=== PATIENT | female | born 1950 | race Caucasian/White ===

== ENCOUNTER 2024-01-13 10:05 | Inpatient (IN) ==
[2024-01-13] MEDS ORDERED: IOPAMIDOL 100 ML BOTTLE IV ONE (10:06)
[2024-01-13] MEDS: 0.9 % SODIUM CHLORIDE 1,000 ML IV ONE (10:30)
[2024-01-13] MEDS: cefTRIAXone 2 GM in DEXTROSE 5% IN WATER 50 ML IV ONE (10:55)
[2024-01-13 11:28] LABS: Basophils # (Auto) 0.03 K/mcL (0.00-0.30); Basophils % (Auto) 0.4 % (0.0-2.0); Eosinophils # (Auto) 0.01 K/mcL (0.00-0.70); Eosinophils % (Auto) 0.1 % (0.0-7.0); Hematocrit 47.2 % (34.1-44.9); Hemoglobin 15.3 g/dL (11.2-15.7); Lymphocytes # (Auto) 0.94 K/mcL (1.50-4.80); Lymphocytes % (Auto) 11.1 % (15.5-49.0); Mean Cell Volume 96.7 fL (80.0-100.0); Mean Corpuscular HGB Conc 32.4 g/dL (31.0-36.0); Mean Platelet Volume 10.8 fL (8.8-12.5); Monocytes # (Auto) 0.87 K/mcL (0.10-0.90); Monocytes % (Auto) 10.3 % (1.0-12.0); Neutrophils % (Auto) 77.9 % (38.0-78.0); Platelet Count 136 K/mcL (140-440); RBC 4.88 M/mcL (3.59-5.38); Red Cell Distribution Width 13.7 % (11.5-14.5); WBC 8.5 K/mcL (4.5-11.0)
[2024-01-13 11:57] LABS: Appearance,Urine Clear (Clear); Bacteria,Urine Mod /hpf (0); Bilirubin,Urine Small mg/dL (Negative); Color,Urine Yellow; Culture Indicated,Urine Yes; Glucose,Urine (UA) Negative (Negative); Ketones,Urine >=160 mg/dL (Negative); Leukocyte Esterase,Urine Moderate /uL (Negative); Nitrate,Urine Negative (Negative); Protein,Urine 100 mg/dL (Negative); Specific Gravity,Urine 1.025 (1.000-1.035); Urine Blood Large ery/mcL (Negative); Urine RBC > 182 /hpf (0-1); Urine Renal Epithelial Cells 3 /hpf (0-2); Urine Squamous Epithelial Cell 2 /hpf (0-4); Urine WBC > 182 /hpf (0-4)
[2024-01-13 12:04] LABS: ALT/SGPT 76 U/L (<40); AST/SGOT 91 U/L (<32); Albumin 3.9 gm/dL (3.2-5.2); Albumin/Globulin Ratio 1.6 (1.0-2.3); Alkaline Phosphatase 99 U/L (39-117); Bilirubin,Total 1.8 mg/dL (0.1-1.0); Blood Urea Nitrogen 17 mg/dL (8-23); Calcium 8.4 mg/dL (8.6-10.4); Carbon Dioxide 20 mmol/L (22-30); Chloride 102 mmol/L (96-108); Globulin 2.4 gm/dL (2.2-3.7); Glomerular Filtration Rate 73; Glucose 108 mg/dL (70-105); Potassium 4.2 mmol/L (3.3-5.1); Sodium 138 mmol/L (133-145); Thyroid Stimulating Hormone 2.69 uIU/mL (0.27-5.01)
[2024-01-13 13:07] LABS: Free T4 (Free Thyroxine) 1.37 ng/dL (0.93-1.70)
[2024-01-13] MEDS: ONDANSETRON 4 MG/2 ML VIAL IV ONE (13:20)
[2024-01-13 15:01] LABS: INR 0.9 (0.9-1.1); Prothrombin Time 13.2 sec (11.9-14.5)
[2024-01-13] MEDS: metroNIDAZOLE 500 MG/100 ML BAG IV ONE (15:10)
[2024-01-13] MEDS: ACETAMINOPHEN 650 MG/65 ML BAG IV ONE (17:00)
[2024-01-13] MEDS ORDERED: ACETAMINOPHEN 325 MG TABLET PO PRN (18:44)
[2024-01-13] MEDS ORDERED: ALBUTEROL SULFATE 2.5 MG/3 ML NEBULIZER NEB PRN (18:44)
[2024-01-13] MEDS ORDERED: ONDANSETRON 4 MG/2 ML VIAL IV PRN ×2 (18:44)
[2024-01-13] MEDS ORDERED: MAG HYDROX/AL HYDROX/SIMETH 30 ML ORAL.SUSP PO PRN (18:44)
[2024-01-13] MEDS ORDERED: HYDROmorphone 1 MG/ML SYRINGE IV PRN (18:44)
[2024-01-13] MEDS: morphine 4 MG/ML VIAL IV PRN (19:26)
[2024-01-13] MEDS: LORazepam 2 MG/ML VIAL IV PRN (19:27)
[2024-01-13] MEDS: morphine 4 MG/ML VIAL ONE (19:34)
[2024-01-13] MEDS: LORazepam 2 MG/ML VIAL ONE (19:34)
[2024-01-13] MEDS: 0.9 % SODIUM CHLORIDE 10 ML SYRINGE IV SCH ×2 (20:20→21:26)
[2024-01-14] MEDS: NYSTATIN POWDER BOTTLE 15GM TOPICAL SCH (17:55)
[2024-01-15] MEDS: morphine 20 MG/ML ML SL PRN (11:45)
[2024-01-15] MEDS: LORazepam 0.5 MG TABLET PO PRN (13:17)
[2024-01-15] MEDS: diphenhydrAMINE 25 MG CAPSULE PO ONE (13:17)
[2024-01-15] MEDS ORDERED: ONDANSETRON 4 MG ODT TABLET SL PRN ×2 (20:08→20:10)
[2024-01-15] MEDS: traZODone HCL 50 MG TABLET PO PRN (22:15)
[2024-01-16] MEDS: diphenhydrAMINE 50 MG/ML VIAL IV ONE (10:51)
[2024-01-16] MEDS: diphenhydrAMINE 25 MG CAPSULE PO ONE (12:51)
[2024-01-16] MEDS: CETIRIZINE 10 MG TABLET PO SCH (12:52)
[2024-01-16] MEDS: diphenhydrAMINE 25 MG CAPSULE PO PRN (17:19)
[2024-01-18] MEDS: POLYETHYLENE GLYCOL 3350 17 GM PACKET PO ONE (10:32)
[2024-01-19] MEDS ORDERED: POLYETHYLENE GLYCOL 3350 17 GM PACKET PO SCH (09:00)
== END 2024-01-18 15:30 | disposition hospice, inpatient (51) | DRG 951 ==
LOC: ED 10:05 → MEDSUR 18:38
PROVIDERS: ADMIT Student in an Organized Health Care Education/Training Program; ATTEND Internal Medicine